=== PATIENT | male | born 1945 | race Caucasian/White ===

== ENCOUNTER 2021-07-28 06:52 | Emergency (ER) | payer MEDICARE, BC ==
[~2021-07-28] VITALS: Ht 177.8 cm; Wt 68.2 kg
[~2021-07-28 06:52] MED LIST: HYDR-4353 PO; METH-603 PO
[2021-07-28] MEDS ORDERED: celeCOXIB 100mg capsule PO SCH (08:20)
[2021-07-28] MEDS ORDERED: celeCOXIB 100mg capsule PO ONE (08:20)
--- NOTE | 2021-07-28 10:47 | NUR ---
PT STATES "I HAVE A DISABLED AT HOME CAN YOU JUST CALL ME WITH RESULTS" EXPLAINED TO PT THAT WE DONT CALL HOME WITH RESULTS PT STATES "THATS FINE ILL JUST GET IT FROM MY DR" PT LEAVING ED STEADY GATE
[2021-07-28 10:51] VITALS: BP 105/60
== END 2021-07-28 10:56 | disposition left against medical advice (07) ==
LOC: ER 06:52
DX: M25.552 Pain in left hip (principal); R42 Dizziness and giddiness; G89.29 Other chronic pain; F17.200 Nicotine dependence, unspecified, uncomplicated; Z72.89 Other problems related to lifestyle; Z79.899 Other long term (current) drug therapy
CPT/HCPCS: 72131; 73502; 99284

== ENCOUNTER 2022-12-15 14:26 | Emergency (ER) | payer MEDICARE, BC ==
[~2022-12-15] VITALS: Ht 177.8 cm; Wt 74.0 kg
[2022-12-15 14:56] VITALS: TEMP 101
[2022-12-15] MEDS ORDERED: ringers solution, lactated 500ml IV solution IV ONE (15:40)
[2022-12-15] MEDS ORDERED: acetaminophen 325mg tablet PO ONE (15:40)
[2022-12-15 16:23] LABS: BASOPHILS % (AUTO) 0.1 % (0-1); EOSINOPHILS % (AUTO) 0 % (0-6); HEMATOCRIT 40.2 % (42.0-52.0); HEMOGLOBIN 13.6 g/dl (14.0-17.9); LYMPHOCYTES # (AUTO) 0.3 X10'3 (1.1-4.8); LYMPHOCYTES % (AUTO) 6.1 % (21-51); MEAN CORPUSCULAR HEMOGLOBIN 33.7 PG (27.0-31.0); MEAN CORPUSCULAR HGB CONC 33.7 g/dL (33.0-36.5); MEAN CORPUSCULAR VOLUME 99.9 FL (78-98); MEAN PLATELET VOLUME 6.9 FL (7.4-10.4); MONOCYTES # (AUTO) 0.5 X10'3 (0-0.9); MONOCYTES % (AUTO) 9.7 % (2-12); NEUTROPHILS # (AUTO) 4.6 X10'3 (1.8-7.7); NEUTROPHILS % (AUTO) 84.1 % (42-75); PLATELET COUNT 196 X10'3 (140-440); RED BLOOD COUNT 4.03 X10'6 (4.70-6.10); WHITE BLOOD COUNT 5.5 X10'3 (4.5-11.0)
[2022-12-15 16:33] LABS: APTT 35 SECONDS (22-32); PROTHROMBIN TIME 10.5 SECONDS (9.0-12.0)
[2022-12-15 16:37] LABS: ALANINE AMINOTRANSFERASE 26 U/L (12-78); ALBUMIN 3.3 G/DL (3.4-5.0); ALBUMIN/GLOBULIN RATIO 0.9 (1.1-1.5); ALKALINE PHOSPHATASE 70 IU/L (46-116); ANION GAP 8 (8-16); ASPARTATE AMINO TRANSFERASE 22 U/L (10-37); BILIRUBIN,TOTAL 0.4 MG/DL (0.1-1.0); BLOOD UREA NITROGEN 17 MG/DL (7-18); BUN/CREATININE RATIO 20.5 (10.0-20.0); CALCIUM 8.6 MG/DL (8.5-10.1); CHLORIDE 96 MMOL/L (99-107); CREATININE 0.83 MG/DL (0.60-1.10); GLUCOSE 96 MG/DL (70-104); POTASSIUM 3.8 MMOL/L (3.5-5.1); SODIUM 132 MMOL/L (135-145); TOTAL PROTEIN 7.1 G/DL (6.4-8.2); eCRCL 78 ML/MIN; eGFR 90 ML/MIN
[2022-12-15 16:45] LABS: PRO BRAIN NATRIURETIC PEPTIDE 1281 PG/ML (0-450)
[2022-12-15] MEDS ORDERED: HYDROcodone/acetaminophen 10/325mg tab PO ONE (19:00)
[2022-12-15 19:28] LABS: BILIRUBIN,URINE NEGATIVE (Neg); CLARITY,URINE CLEAR (Clear); COLOR,URINE YELLOW (Yellow); GLUCOSE, URINE NEGATIVE (Neg); KETONES,URINE 15 mg/dl (Neg); LEUKOCYTE ESTERASE ,URINE NEGATIVE (Neg); NITRITES, URINE NEGATIVE (Neg); OCCULT BLOOD,URINE MODERATE (Neg); PH,URINE 6.5 (4.8-8.0); PROTEIN,URINE NEGATIVE (Neg)
[2022-12-15 19:35] LABS: UA COLLECTION TYPE CLN CATCH MIDSTREAM
[2022-12-15 19:36] LABS: MUCUS STRANDS FEW /LPF (Neg); SQUAMOUS EPITHELIAL CELL,UR FEW /LPF (FEW)
[2022-12-15 19:37] LABS: BACTERIA,URINE NONE SEEN /HPF (Neg); WBC,URINE 0-4 /HPF (0-4)
--- NOTE | 2022-12-15 20:20 | NUR ---
GAVE PT'S , SWAPNIL, AN UPDATE ON THE PT'S STATUS. WILL BE ABLE TO GLEASON GEAR GENERATOR PT UPON DISCHARGE
[2022-12-15 21:29] VITALS: BP 147/69; PULSE 82; RESP 20; O2SAT 95
[2022-12-15] MEDS ORDERED: furosemide 10 MG/1 ML 10ml inj IV ONE (22:00)
--- NOTE | 2022-12-15 22:18 | NUR ---
PT REFUSES ADMISSION STATUS, PROVIDER IS AWARE
== END 2022-12-15 23:06 | disposition left against medical advice (07) ==
LOC: ER 14:27
DX: U07.1 COVID-19 (principal); R09.02 Hypoxemia; I50.9 Heart failure, unspecified; G89.29 Other chronic pain; F17.200 Nicotine dependence, unspecified, uncomplicated; Z72.89 Other problems related to lifestyle; Z79.899 Other long term (current) drug therapy
CPT/HCPCS: 36415; 70450; 71045; 80053; 81001; 83605; 83880; 84484; 85025; 85610; 85730; 87811; 93005; 96374; 99285; J1940; J7120; A4615

== ENCOUNTER 2023-01-04 12:26 | Outpatient (CLI) | payer MEDICARE, BC ==
[~2023-01-04 12:26] MED LIST changes: +BARIUM SULFATE 340 ML SUSP.RECON***PROCEDURE AREA ONLY**DONT ENTER PO ONE
== END 2023-01-04 23:59 | disposition home or self-care (01) ==
LOC: RAD 12:26
PROVIDERS: ATTEND Family Medicine
DX: Z87.11 Personal history of peptic ulcer disease (principal)
CPT/HCPCS: 74240